=== PATIENT | female | born 1970 | race Caucasian/White ===

== ENCOUNTER 2017-01-31 16:46 | Emergency (ER) | payer OTHER ==
[~2017-01-31 16:46] MED LIST: ASPIRIN EC325 MG PO; FLEXERIL 10 MG10 MG PO; LIPITOR40 MG PO; LOPRESSOR 25 MG25 MG PO; NEURONTIN600 MG PO; NITRO-TIME2.5 MG PO; NITROSTAT0.4 MG SL; PROTONIX40 MG PO; PROZAC40 MG PO; REMERON15 MG PO; RISPERDAL1 MG PO; SEROQUEL100 MG PO; SEROQUEL50 MG PO; TEGRETOL200 MG PO; TOPAMAX25 MG PO; TOPROL XL25 MG PO; WELLBUTRIN XL150 MG PO
[2017-01-31 18:01] LABS: HEMOGLOBIN 12.4 gm/dl (12.3-15.3); RED BLOOD COUNT 3.93 M/UL (4.00-5.10); WHITE BLOOD COUNT 10.2 K/UL (4.5-11.0)
[2017-01-31 18:31] LABS: BUN/CREATININE RATIO 14 (0-10)
[2017-02-01 15:48] LABS: ACINETOBACTER BAUMANNII Not Detected (Negative); CANDIDA ALBICANS Not Detected (Negative); CANDIDA KRUSEI Not Detected (Negative); CANDIDA TROPICALIS Not Detected (Negative); ENTEROCOCCUS Not Detected (Negative); ESCHERICHIA COLI Not Detected (Negative); HAEMOPHILUS INFLUENZAE Not Detected (Negative); KLEBSIELLA OXYTOCA Not Detected (Negative); KLEBSIELLA PNEUMONIAE Not Detected (Negative); KPC-CARBAPENEM-RESISTANCE GENE Not Detected (Negative); PROTEUS Not Detected (Negative); PSEUDOMONAS AERUGINOSA Not Detected (Negative); SERRATIA MARCESANS Not Detected (Negative); STAPHYLOCOCCUS AUREUS Not Detected (Negative); STREP AGALACTIAE (GROUP B) Not Detected (Negative); STREP PYOGENES (GROUP A) Not Detected (Negative); STREPTOCOCCUS Not Detected (Negative); vanA/B (VANCOMYCIN RESIST GENE Not Detected (Negative)
[2017-02-01 18:19] LABS: STAPHYLOCOCCUS DETECTED (Negative)
[2017-02-01 18:20] LABS: mecA (METHICILLIN RESIST GENE DETECTED (Negative)
== END 2017-01-31 22:33 | disposition home or self-care (01) ==
LOC: ER1 16:46
PROVIDERS: Emergency Medicine; Specialist/Technologist Athletic Trainer
DX: I95.1 Orthostatic hypotension (principal); R07.89 Other chest pain
CPT/HCPCS: 36415; 71010; 80053; 81001; 82009; 82550; 82553; 83874; 83880; 84484; 84703; 85025; 85379; 87040; 87077; 87150; 87186; 93005; 96360; 99285

== ENCOUNTER 2017-02-04 13:44 | Emergency (ER) | payer OTHER ==
[2017-02-04 14:22] LABS: HEMOGLOBIN 12.8 gm/dl (12.3-15.3); RED BLOOD COUNT 3.98 M/UL (4.00-5.10); WHITE BLOOD COUNT 12.3 K/UL (4.5-11.0)
[2017-02-04 14:44] LABS: BUN/CREATININE RATIO 13 (0-10)
== END 2017-02-04 19:45 | disposition home or self-care (01) ==
LOC: ER1 13:44
PROVIDERS: Emergency Medicine
DX: R53.1 Weakness (principal); I10 Essential (primary) hypertension; Z79.82 Long term (current) use of aspirin; Z79.899 Other long term (current) drug therapy
CPT/HCPCS: 36415; 71010; 80053; 80307; 81001; 82550; 82553; 83874; 83880; 84484; 85025; 85379; 87086; 93005; 99285; J7030; J7050; Q9963

== ENCOUNTER 2017-02-28 10:25 | Observation (INO) | payer OTHER ==
[~2017-02-28] VITALS: Ht 162.6 cm; Wt 124.7 kg
[2017-02-28 12:36] LABS: HEMOGLOBIN 11.8 gm/dl (12.3-15.3); RED BLOOD COUNT 3.69 M/UL (4.00-5.10); WHITE BLOOD COUNT 15.7 K/UL (4.5-11.0)
[2017-02-28 12:58] LABS: BUN/CREATININE RATIO 14 (0-10)
[2017-02-28] MEDS ORDERED: IBUPROFEN600 MG PO (23:38)
[2017-02-28] MEDS ORDERED: FLEXERIL 10 MG10 MG PO (23:38)
[2017-02-28] MEDS ORDERED: MEDROL TAB 4 MG4 MG PO (23:39)
[2017-02-28] MEDS ORDERED: PROTONIX40 MG PO (23:39)
[2017-02-28] MEDS ORDERED: RA CALCIUM CIT PO (23:40)
[2017-02-28] MEDS ORDERED: RA SENNA PLUS1 EACH PO (23:41)
[2017-02-28] MEDS ORDERED: NEURONTIN 400400 MG PO (23:41)
[2017-02-28] MEDS ORDERED: LIPITOR40 MG PO (23:42)
[2017-02-28] MEDS ORDERED: TOPAMAX 100 MG100 MG PO (23:42)
[2017-02-28] MEDS ORDERED: VALIUM 5 MG TAB5 MG PO (23:42)
[2017-02-28] MEDS ORDERED: PROZAC40 MG PO (23:43)
[2017-02-28] MEDS ORDERED: DEPAKOTE500 MG PO (23:43)
[2017-02-28] MEDS ORDERED: MIRALAX17 GM PO (23:44)
[2017-02-28] MEDS ORDERED: METFORMIN HCL500 M2 PO (23:44)
[2017-02-28] MEDS ORDERED: ASPIRIN325 MG PO (23:45)
[2017-02-28] MEDS ORDERED: NITROSTAT 0.40.4 MG SL (23:45)
[2017-02-28] MEDS ORDERED: VENTOLIN/PROVE0.5 ML INH (23:47)
[2017-02-28] MEDS ORDERED: NITROGLYCERIN6.5 M1 PO (23:47)
[2017-02-28] MEDS ORDERED: WELLBUTRIN XL150 MG PO (23:48)
[2017-03-01 04:34] LABS: HEMOGLOBIN 11.2 gm/dl (12.3-15.3); RED BLOOD COUNT 3.56 M/UL (4.00-5.10)
[2017-03-01 04:35] LABS: WHITE BLOOD COUNT 11.1 K/UL (4.5-11.0)
[2017-03-01 05:00] LABS: BUN/CREATININE RATIO 13 (0-10)
== END 2017-03-01 18:05 | disposition home or self-care (01) ==
LOC: ER1 10:25 → ZEROF 16:05 → MED SURG 4 23:28
PROVIDERS: Physician Assistant; ADMIT Internal Medicine
DX: R07.9 Chest pain, unspecified (principal); M50.221 Other cervical disc displacement at C4-C5 level; M50.222 Other cervical disc displacement at C5-C6 level; M50.21 Other cervical disc displacement, high cervical region; D72.829 Elevated white blood cell count, unspecified; T38.0X5A Adverse effect of glucocorticoids and synthetic analogues, initial encounter; I10 Essential (primary) hypertension; F32.9 Major depressive disorder, single episode, unspecified; F41.9 Anxiety disorder, unspecified; G40.909 Epilepsy, unspecified, not intractable, without status epilepticus; K21.9 Gastro-esophageal reflux disease without esophagitis; E66.9 Obesity, unspecified; M25.511 Pain in right shoulder; F17.210 Nicotine dependence, cigarettes, uncomplicated; Z79.82 Long term (current) use of aspirin; Z79.899 Other long term (current) drug therapy; Z90.49 Acquired absence of other specified parts of digestive tract; Z82.49 Family history of ischemic heart disease and other diseases of the circulatory system
CPT/HCPCS: 36415; 70450; 71020; 72125; 73030; 80048; 80053; 80061; 81001; 82550; 82553; 82962; 83735; 83874; 84484; 85025; 87077; 87086; 87186; 93005; 96374; 96375; 99285; G0378; J2270; J2405; J7509

== ENCOUNTER → 2017-07-12 | Outpatient (CLI) | payer OTHER ==
[~2017-07-12] MED LIST changes: +ASPIRIN325 MG PO; +DEPAKOTE500 MG PO; +IBUPROFEN600 MG PO; +MEDROL TAB 4 MG4 MG PO; +METFORMIN HCL500 M2 PO; +MIRALAX17 GM PO; +NEURONTIN 400400 MG PO; +NITROGLYCERIN6.5 M1 PO; +NITROSTAT 0.40.4 MG SL; +RA CALCIUM CIT PO; +RA SENNA PLUS1 EACH PO; +TOPAMAX 100 MG100 MG PO; +VALIUM 5 MG TAB5 MG PO; +VENTOLIN/PROVE0.5 ML INH
== END ==
LOC: RAD 16:20
DX: K59.00 Constipation, unspecified (principal); M17.0 Bilateral primary osteoarthritis of knee; M76.52 Patellar tendinitis, left knee
CPT/HCPCS: 73564; 74020

== ENCOUNTER 2020-11-13 19:33 | Emergency (ER) | payer MEDICARE, OTHER ==
[~2020-11-13] VITALS: Ht 172.7 cm; Wt 129.3 kg
[~2020-11-13 19:33] MED LIST changes: +ALBUTEROL0.63 MG/3 INH; +ALBUTEROL2.5 MG/3 M INH; +ASPIRIN 325MG325 MG PO; +ASPIRIN81 MG PO; +ATORVASTATIN CA40 MG PO; +AUGMENTIN 875-1 EACH PO; +BACTRIM DS TAB1 EACH PO; +BACTROBAN NASAL1 G1; +BENTYL 10MG CAP10 MG PO; +CALCIUM 600 +1 EA11 PO; +CELEBREX 200MG200 MG PO; +CELECOXIB200 MG PO; +COL-RITE100 MG PO; +COLACE 100MG C100 MG PO; +DIAZEPAM5 MG PO; +DOXYCYCLINE HY100 M2 PO; +EMERGEN-C 500500 MG PO; +FISH OIL 1,0001 EACH PO; +GABAPENTIN300 MG PO; +GABAPENTIN600 MG PO; +GABAPENTIN800 MG PO; +HYDROXYZINE HCL25 MG PO; +IBU800 MG PO; -IBUPROFEN600 MG PO; +IBUPROFEN800 MG PO; +IMITREX50 MG PO; +INDERAL TAB 2020 MG PO; +INVANZ 1 GM VIAL1 GM IV; +KEFLEX CAP 500500 MG PO; +LEVAQUIN500 MG PO; +LINZESS145 MCG PO; +LORTAB 7.5-3251 EACH PO; +MAPAP325 MG PO; +MINIPRESS2 MG PO; +MULTIVITAMINS1 EAC1 PO; +NAPROXEN 250 M250 MG PO; +NEURONTIN800 MG PO; +NICOTINE PATCH1 EAC2 TOP; +NORCO 10-325 T1 EACH PO; +NORCO 5-325 TA1 EACH PO; +NORCO 7.5-3251 EACH PO; +OMNICEF 300 MG300 MG PO; +OXCARBAZEPINE150 MG PO; +PREDNISONE 20 M20 MG PO; +PROPRANOLOL HCL10 MG PO; +QNASL8.7 GM INH; +REGLAN5 MG PO; +REXULTI PO; +ROBAXIN-750750 MG PO; +SILVADENE CREAM20 GM TOP; +TEGRETOL 200 M200 MG PO; +TRAZODONE HCL100 MG PO; +ULTRAM50 MG PO; +VENTOLIN HFA 66.7 GM INH; +VIBRAMYCIN100 MG PO; +VITAMIN C500 M4 PO; +ZESTRIL/PRINIVI10 MG PO; +ZITHROMAX250 MG PO; +ZOFRAN4 MG PO; +rexulti PO
[2020-11-13 20:21] LABS: HEMOGLOBIN 11.9 gm/dl (12.3-15.3); RED BLOOD COUNT 3.73 M/UL (4.00-5.10); WHITE BLOOD COUNT 14.1 K/UL (4.5-11.0)
[2020-11-13 20:46] LABS: BUN/CREATININE RATIO 20 (0-10)
[2020-11-13] MEDS ORDERED: LOPRESSOR 25 MG25 MG PO (23:06)
[2020-11-13] MEDS ORDERED: ZESTRIL5 MG PO (23:09)
[2020-11-13] MEDS ORDERED: IBUPROFEN800 MG PO (23:09)
[2020-11-13] MEDS ORDERED: INDERAL TAB 2020 MG PO (23:10)
[2020-11-13] MEDS ORDERED: NASONEX17 GM (23:11)
[2020-11-13] MEDS ORDERED: LYRICA200 MG PO (23:12)
[2020-11-13] MEDS ORDERED: KLONOPIN0.5 MG PO (23:12)
[2020-11-13] MEDS ORDERED: CELEBREX 200MG200 MG PO (23:13)
[2020-11-13] MEDS ORDERED: TRILEPTAL150 MG PO (23:14)
[2020-11-13] MEDS ORDERED: LASIX TAB 20 MG20 MG PO (23:15)
[2020-11-13] MEDS ORDERED: DOK100 MG PO (23:17)
[2020-11-14 04:36] LABS: RED BLOOD COUNT 3.44 M/UL (4.00-5.10); WHITE BLOOD COUNT 11.2 K/UL (4.5-11.0)
[2020-11-14 04:49] LABS: BUN/CREATININE RATIO 32 (0-10)
[2021-05-14] MEDS ORDERED: MOVANTIK25 MG PO (13:23)
[2021-05-14] MEDS ORDERED: VITAMIN D21250 MCG PO (13:25)
[2021-05-21] MEDS ORDERED: PROZAC40 MG PO (07:03)
== END 2020-11-14 14:00 | disposition home or self-care (01) ==
LOC: ER1 19:33 → CDU 21:42 → ER1 21:42
PROVIDERS: Internal Medicine; Nurse Practitioner
DX: R07.1 Chest pain on breathing (principal); E87.6 Hypokalemia; D72.829 Elevated white blood cell count, unspecified; D64.9 Anemia, unspecified; R06.02 Shortness of breath; R42 Dizziness and giddiness; I25.2 Old myocardial infarction; I10 Essential (primary) hypertension; E78.5 Hyperlipidemia, unspecified; J44.9 Chronic obstructive pulmonary disease, unspecified; F41.9 Anxiety disorder, unspecified; G40.909 Epilepsy, unspecified, not intractable, without status epilepticus; F32.9 Major depressive disorder, single episode, unspecified; F17.210 Nicotine dependence, cigarettes, uncomplicated; Z87.01 Personal history of pneumonia (recurrent); Z79.82 Long term (current) use of aspirin; Z98.890 Other specified postprocedural states; Z99.81 Dependence on supplemental oxygen; Z79.899 Other long term (current) drug therapy; G89.29 Other chronic pain; Z79.891 Long term (current) use of opiate analgesic; Z86.16 Personal history of COVID-19; Z87.19 Personal history of other diseases of the digestive system; Z20.822 Contact with and (suspected) exposure to COVID-19
CPT/HCPCS: 71045; 80048; 80053; 82550; 82553; 83735; 83874; 84484; 85025; 90471; 93005; 99285; J2270; J2405; U0002

== ENCOUNTER 2020-12-04 15:19 | Emergency (ER) | payer MEDICARE, OTHER ==
[~2020-12-04 15:19] MED LIST changes: +DOK100 MG PO; +KLONOPIN0.5 MG PO; +LASIX TAB 20 MG20 MG PO; +LYRICA200 MG PO; +NASONEX17 GM; +TRILEPTAL150 MG PO; +ZESTRIL5 MG PO
[2020-12-04 16:44] LABS: RED BLOOD COUNT 3.83 M/UL (4.00-5.10); WHITE BLOOD COUNT 16.2 K/UL (4.5-11.0)
[2020-12-04 17:13] LABS: BUN/CREATININE RATIO 15 (0-10)
[2020-12-04] MEDS ORDERED: IBUPROFEN800 MG PO (17:41)
[2020-12-04] MEDS ORDERED: CYCLOBENZAPRINE10 MG PO (17:41)
[2021-05-14] MEDS ORDERED: MOVANTIK25 MG PO (13:23)
[2021-05-14] MEDS ORDERED: VITAMIN D21250 MCG PO (13:25)
[2021-05-21] MEDS ORDERED: PROZAC40 MG PO (07:03)
== END 2020-12-04 18:10 | disposition home or self-care (01) ==
LOC: ER1 15:19
PROVIDERS: Preventive Medicine Occupational Medicine
DX: R07.89 Other chest pain (principal); I10 Essential (primary) hypertension; E11.9 Type 2 diabetes mellitus without complications; F17.200 Nicotine dependence, unspecified, uncomplicated
CPT/HCPCS: 36415; 71260; 80053; 85025; 85652; 86140; 96374; 99285; J1885; Q9963

== ENCOUNTER → 2021-01-26 | Outpatient (CLI) | payer MEDICARE, OTHER ==
[~2021-01-26] MED LIST changes: +CARAFATE 1 GM TA1 GM PO; +COLACE100 MG PO; +CYCLOBENZAPRINE10 MG PO; +DICLOFENAC SOD100 GM EXT; +DIFLUCAN200 MG PO; +HYDROCODON-ACE1 EAC2 PO; +MOVANTIK25 MG PO; +NATURAL FIBER283 G1 PO; +NITROGLYCERIN0.4 MG PO; +NURTEC ODT75 MG PO; +PERCOCET 10-321 EACH PO; +POLYETHYLENE GL17 GM PO; +POTASSIUM CHLO10 MEQ PO; +PROAIR DIGIHAL90 MCG PO; +PROGESTERONE200 MG PO; +ROPINIROLE HCL1 MG PO; +VITAMIN D21250 MCG PO; +ZYRTEC10 MG PO
== END ==
LOC: KOH-I 16:31
DX: M25.571 Pain in right ankle and joints of right foot (principal)
CPT/HCPCS: 73610; 73630

== ENCOUNTER → 2021-02-09 | Outpatient (CLI) | payer MEDICARE, OTHER | LOC: KOH-I 01-30 13:00 | DX: J32.9 Chronic sinusitis, unspecified (principal); R51.9 Headache, unspecified | CPT/HCPCS: 70486 ==

== ENCOUNTER → 2021-04-21 | Outpatient (CLI) | payer MEDICARE, OTHER | LOC: KOH-I 14:39 | DX: S82.831A Other fracture of upper and lower end of right fibula, initial encounter for closed fracture (principal); X58.XXXA Exposure to other specified factors, initial encounter | CPT/HCPCS: 73610 ==

== ENCOUNTER → 2021-05-14 | Outpatient (CLI) | payer MEDICARE, OTHER ==
[~2021-05-14] MED LIST changes: +PERCOCET 5-3251 EACH PO; +PERCOCET 5/325 T1 EA PO
[2021-05-14 12:18] LABS: HEMOGLOBIN 11.6 gm/dl (12.3-15.3); RED BLOOD COUNT 3.7 M/UL (4.00-5.10); WHITE BLOOD COUNT 10.7 K/UL (4.5-11.0)
== END ==
LOC: OPSV2 10:30
PROVIDERS: Anesthesiology; Obstetrics & Gynecology
DX: Z01.812 Encounter for preprocedural laboratory examination (principal); R10.2 Pelvic and perineal pain
CPT/HCPCS: 80048; 81001; 85025

== ENCOUNTER 2021-05-21 11:37 | Inpatient (IN) | payer MEDICARE, OTHER ==
[~2021-05-21] VITALS: Ht 162.6 cm; Wt 124.7 kg
[~2021-05-21 11:37] MED LIST changes: -CARAFATE 1 GM TA1 GM PO; -COLACE100 MG PO; -DICLOFENAC SOD100 GM EXT; -DIFLUCAN200 MG PO; -HYDROCODON-ACE1 EAC2 PO; -LYRICA200 MG PO; -NATURAL FIBER283 G1 PO; -NITROGLYCERIN0.4 MG PO; -NURTEC ODT75 MG PO; -PERCOCET 10-321 EACH PO; -PERCOCET 5-3251 EACH PO; -PERCOCET 5/325 T1 EA PO; -POLYETHYLENE GL17 GM PO; -POTASSIUM CHLO10 MEQ PO; -PROAIR DIGIHAL90 MCG PO; -PROGESTERONE200 MG PO; -ROPINIROLE HCL1 MG PO; -ZYRTEC10 MG PO
[2021-05-21] MEDS ORDERED: CARAFATE 1 GM TA1 GM PO (13:22)
[2021-05-21] MEDS ORDERED: GABAPENTIN300 MG PO (13:22)
[2021-05-21] MEDS ORDERED: SEROQUEL100 MG PO (13:24)
[2021-05-21] MEDS ORDERED: PROGESTERONE200 MG PO (13:24)
[2021-05-21] MEDS ORDERED: ZYRTEC10 MG PO (13:25)
[2021-05-21] MEDS ORDERED: ROPINIROLE HCL1 MG PO (16:14)
[2021-05-21] MEDS ORDERED: POLYETHYLENE GL17 GM PO (17:26)
[2021-05-21] MEDS ORDERED: PROAIR DIGIHAL90 MCG PO (17:30)
[2021-05-21] MEDS ORDERED: IBU800 MG PO (17:31)
[2021-05-21] MEDS ORDERED: DICLOFENAC SOD100 GM EXT (17:35)
[2021-05-21] MEDS ORDERED: NITROGLYCERIN0.4 MG PO (17:43)
[2021-05-21] MEDS ORDERED: ASPIRIN81 MG PO (17:45)
[2021-05-21] MEDS ORDERED: ATORVASTATIN CA40 MG PO (17:46)
[2021-05-21] MEDS ORDERED: LINZESS145 MCG PO (17:47)
[2021-05-21] MEDS ORDERED: POTASSIUM CHLO10 MEQ PO (17:49)
[2021-05-21] MEDS ORDERED: NATURAL FIBER283 G1 PO (17:52)
[2021-05-21 18:13] LABS: HEMOGLOBIN 12.1 gm/dl (12.3-15.3)
[2021-05-21] MEDS ORDERED: HYDROCODON-ACE1 EAC2 PO (21:42)
[2021-05-21] MEDS ORDERED: NURTEC ODT75 MG PO (23:13)
[2021-05-22] MEDS ORDERED: COLACE100 MG PO (10:57)
[2021-05-22] MEDS ORDERED: DIFLUCAN200 MG PO (10:57)
[2021-05-22] MEDS ORDERED: IBUPROFEN800 MG PO (10:57)
[2021-05-22] MEDS ORDERED: PERCOCET 10-321 EACH PO (10:57)
== END 2021-05-22 12:25 | disposition home or self-care (01) | DRG 742 ==
LOC: OR 11:37 → MED SURG 4 11:38 → OR 16:13 → MED SURG 4 05-22 12:25
PROVIDERS: ADMIT Obstetrics & Gynecology
PROC: 0UT20ZZ Resection of Bilateral Ovaries, Open Approach (ICD-10-PCS; 2021-05-21)
PROC: 0UT70ZZ Resection of Bilateral Fallopian Tubes, Open Approach (ICD-10-PCS; 2021-05-21)
PROC: 0UT90ZZ Resection of Uterus, Open Approach (ICD-10-PCS; principal; 2021-05-21 07:30)
DX: D25.9 Leiomyoma of uterus, unspecified (principal); Z68.42 Body mass index [BMI] 45.0-49.9, adult; N83.292 Other ovarian cyst, left side; F17.210 Nicotine dependence, cigarettes, uncomplicated; I48.91 Unspecified atrial fibrillation; K44.9 Diaphragmatic hernia without obstruction or gangrene; E66.9 Obesity, unspecified; G40.909 Epilepsy, unspecified, not intractable, without status epilepticus; K58.9 Irritable bowel syndrome, unspecified; K21.9 Gastro-esophageal reflux disease without esophagitis; Z87.11 Personal history of peptic ulcer disease; Z79.01 Long term (current) use of anticoagulants; I25.2 Old myocardial infarction; Z86.73 Personal history of transient ischemic attack (TIA), and cerebral infarction without residual deficits; Z80.8 Family history of malignant neoplasm of other organs or systems; Z80.1 Family history of malignant neoplasm of trachea, bronchus and lung; Z83.3 Family history of diabetes mellitus; Z82.49 Family history of ischemic heart disease and other diseases of the circulatory system; Z80.42 Family history of malignant neoplasm of prostate; Z90.49 Acquired absence of other specified parts of digestive tract
CPT/HCPCS: 85014; 85018; 86850; 86900; 86901; J0690; J1100; J1170; J1885; J2001; J2250; J2270; J2405; J2704; J3010; J7120; U0002

== ENCOUNTER 2021-05-29 10:45 | Emergency (ER) | payer MEDICARE, OTHER ==
[~2021-05-29 10:45] MED LIST changes: +CARAFATE 1 GM TA1 GM PO; +COLACE100 MG PO; +DICLOFENAC SOD100 GM EXT; +DIFLUCAN200 MG PO; +HYDROCODON-ACE1 EAC2 PO; +NATURAL FIBER283 G1 PO; +NITROGLYCERIN0.4 MG PO; +NURTEC ODT75 MG PO; +PERCOCET 10-321 EACH PO; +POLYETHYLENE GL17 GM PO; +POTASSIUM CHLO10 MEQ PO; +PROAIR DIGIHAL90 MCG PO; +PROGESTERONE200 MG PO; +ROPINIROLE HCL1 MG PO; +ZYRTEC10 MG PO
[2021-05-29 11:50] LABS: HEMOGLOBIN 11.5 gm/dl (12.3-15.3); RED BLOOD COUNT 3.65 M/UL (4.00-5.10); WHITE BLOOD COUNT 10.7 K/UL (4.5-11.0)
[2021-05-29 14:37] LABS: BUN/CREATININE RATIO 15 (0-10)
[2021-05-30] MEDS ORDERED: PERCOCET 5-3251 EACH PO (21:48)
[2021-05-30] MEDS ORDERED: AUGMENTIN 875-1 EACH PO (21:54)
== END 2021-05-29 15:30 | disposition home or self-care (01) ==
LOC: ER1 10:45
PROVIDERS: Emergency Medicine
DX: R10.9 Unspecified abdominal pain (principal); E87.6 Hypokalemia; Z90.710 Acquired absence of both cervix and uterus; J44.9 Chronic obstructive pulmonary disease, unspecified; Z86.73 Personal history of transient ischemic attack (TIA), and cerebral infarction without residual deficits; I25.2 Old myocardial infarction; Z90.49 Acquired absence of other specified parts of digestive tract; F17.200 Nicotine dependence, unspecified, uncomplicated
CPT/HCPCS: 80053; 81001; 83690; 85025; 87086; 96374; 96375; 99285; J2270; J2405; J7030; Q9967

== ENCOUNTER 2021-05-30 16:43 | Emergency (ER) | payer MEDICARE, OTHER ==
[2021-05-30 18:44] LABS: HEMOGLOBIN 10.8 gm/dl (12.3-15.3); RED BLOOD COUNT 3.4 M/UL (4.00-5.10)
[2021-05-30 18:46] LABS: WHITE BLOOD COUNT 13.4 K/UL (4.5-11.0)
[2021-05-30] MEDS ORDERED: PERCOCET 5-3251 EACH PO (21:48)
[2021-05-30] MEDS ORDERED: AUGMENTIN 875-1 EACH PO (21:54)
== END 2021-05-30 22:10 | disposition home or self-care (01) ==
LOC: ER1 16:43
PROVIDERS: Physician Assistant Medical
DX: E89.822 Postprocedural seroma of an endocrine system organ or structure following an endocrine system procedure (principal); E87.6 Hypokalemia; Z76.0 Encounter for issue of repeat prescription
CPT/HCPCS: 80053; 81001; 83605; 85025; 85652; 86140; 99284

== ENCOUNTER 2021-06-09 11:55 | Observation (INO) | payer MEDICARE, OTHER ==
[~2021-06-09] VITALS: Ht 162.6 cm; Wt 120.2 kg
[~2021-06-09 11:55] MED LIST changes: +PERCOCET 5-3251 EACH PO
--- NOTE | 2021-06-09 13:25 | NUR ---
1207-PT ARRIVED TO OB UNIT, 114/82, 98.2, RR 20, 100%RA, HR 57, PT STATES SHE HAS AN OPEN WOUND THAT IS BEING PACKED, CONTACTED OUR SALES MANAGER [place] AMANDA, SHE LOOKED AT WOUND ON PT AND ALERTED HOUSE SUP THAT THIS PT BE TXD TO A MED/SURG FLOOR, REPORT IMMEDIATELY TO MANUEL NORTON THE RESOURCE RN , AND PT TXD VIA BED TO ROOM 4105. 20 RH IV STARTED, X ONE STICK.
[2021-06-09 13:43] LABS: HEMOGLOBIN 11.2 gm/dl (12.3-15.3); RED BLOOD COUNT 3.55 M/UL (4.00-5.10); WHITE BLOOD COUNT 9.3 K/UL (4.5-11.0)
[2021-06-09 14:08] LABS: BUN/CREATININE RATIO 13 (0-10)
[2021-06-09] MEDS ORDERED: LYRICA200 MG PO (23:12)
[2021-06-10 05:17] LABS: RED BLOOD COUNT 3.47 M/UL (4.00-5.10); WHITE BLOOD COUNT 10.2 K/UL (4.5-11.0)
[2021-06-10 05:32] LABS: BUN/CREATININE RATIO 14 (0-10)
[2021-06-10] MEDS ORDERED: PERCOCET 5/325 T1 EA PO (15:16)
[2021-06-10] MEDS ORDERED: COLACE100 MG PO (15:16)
[2021-06-10] MEDS ORDERED: AUGMENTIN 875-1 EACH PO (15:16)
[2021-06-10] MEDS ORDERED: BACTRIM DS TAB1 EACH PO (15:16)
[2021-06-10] MEDS ORDERED: IBUPROFEN800 MG PO (15:16)
--- NOTE | 2021-06-10 18:45 | NUR ---
ATTEMPTED TO CONTACT HOME HEALTH. VOICEMAIL LEFT WITH SUNNY TO CALL RN BACK, CALL BACK NUMBER LEFT.
== END 2021-06-10 18:19 | disposition home or self-care (01) ==
LOC: GENOP 11:55 → MED SURG 4 12:47 → OB 12:47 → MED SURG 4 13:00
PROVIDERS: Physician Assistant; ADMIT Obstetrics & Gynecology
DX: N99.840 Postprocedural hematoma of a genitourinary system organ or structure following a genitourinary system procedure (principal); D72.820 Lymphocytosis (symptomatic); D64.9 Anemia, unspecified; D47.3 Essential (hemorrhagic) thrombocythemia; E87.6 Hypokalemia; E78.5 Hyperlipidemia, unspecified; J44.9 Chronic obstructive pulmonary disease, unspecified; I25.10 Atherosclerotic heart disease of native coronary artery without angina pectoris; I48.91 Unspecified atrial fibrillation; K21.9 Gastro-esophageal reflux disease without esophagitis; G40.909 Epilepsy, unspecified, not intractable, without status epilepticus; E66.01 Morbid (severe) obesity due to excess calories; F17.200 Nicotine dependence, unspecified, uncomplicated; Z86.73 Personal history of transient ischemic attack (TIA), and cerebral infarction without residual deficits; Z90.722 Acquired absence of ovaries, bilateral
CPT/HCPCS: 36415; 80048; 80053; 83036; 85025; G0378; J7030

== ENCOUNTER → 2021-10-05 | Outpatient (CLI) | payer MEDICARE, OTHER ==
[~2021-10-05] MED LIST changes: +LYRICA200 MG PO; +PERCOCET 5/325 T1 EA PO
== END ==
LOC: RAD 14:00
DX: R05.9 Cough, unspecified (principal)
CPT/HCPCS: 71046

== ENCOUNTER 2021-10-11 07:14 | Emergency (ER) | payer MEDICARE, OTHER ==
[2021-10-11 07:51] LABS: HEMOGLOBIN 11.1 gm/dl (12.3-15.3); RED BLOOD COUNT 3.59 M/UL (4.00-5.10); WHITE BLOOD COUNT 13.4 K/UL (4.5-11.0)
[2021-10-11 08:09] LABS: BUN/CREATININE RATIO 12 (0-10)
[2021-10-11] MEDS ORDERED: AUGMENTIN 875-1 EACH PO (16:12)
[2021-10-11] MEDS ORDERED: PERCOCET 5/325 T1 EA PO (16:12)
[2021-10-11] MEDS ORDERED: FLAGYL 250 MG250 MG GT (16:12)
== END 2021-10-11 16:38 | disposition home or self-care (01) ==
LOC: ER1 07:14
PROVIDERS: Family Medicine
DX: K52.9 Noninfective gastroenteritis and colitis, unspecified (principal); J44.9 Chronic obstructive pulmonary disease, unspecified; F17.210 Nicotine dependence, cigarettes, uncomplicated
CPT/HCPCS: 71045; 80053; 82150; 82550; 82553; 83690; 83874; 84484; 85025; 85379; 93005; 96374; 96375; 96376; 99284; J2270; J2405; Q9967

== ENCOUNTER → 2022-02-26 | Outpatient (CLI) | payer MEDICARE, OTHER ==
[~2022-02-26] MED LIST changes: +FLAGYL 250 MG250 MG GT
== END ==
LOC: KOH-I 10:07
DX: M25.552 Pain in left hip (principal); M25.551 Pain in right hip; M16.0 Bilateral primary osteoarthritis of hip
CPT/HCPCS: 73522

== ENCOUNTER → 2022-05-21 | Outpatient (CLI) | payer MEDICARE, OTHER ==
[2022-05-21 14:13] LABS: HEMOGLOBIN 12.3 gm/dl (12.3-15.3); RED BLOOD COUNT 3.95 M/UL (4.00-5.10); WHITE BLOOD COUNT 15.6 K/UL (4.5-11.0)
[2022-05-21 14:19] LABS: BUN/CREATININE RATIO 12 (0-10)
== END ==
LOC: LAB 12:59
PROVIDERS: Surgery
DX: K92.1 Melena (principal)
CPT/HCPCS: 36415; 71046; 80048; 85025; 93005

== ENCOUNTER 2022-06-07 15:45 | Inpatient (IN) | payer MEDICARE, OTHER ==
[~2022-06-07] VITALS: Ht 162.6 cm; Wt 108.9 kg
[~2022-06-07 15:45] MED LIST changes: +ASPIRIN EC81 MG PO; -LYRICA200 MG PO; +LYRICA300 MG PO; -ROPINIROLE HCL1 MG PO; +ROPINIROLE HCL4 M1 PO
[2022-06-07 16:37] LABS: HEMOGLOBIN 11.7 gm/dl (12.3-15.3); RED BLOOD COUNT 3.76 M/UL (4.00-5.10); WHITE BLOOD COUNT 11.2 K/UL (4.5-11.0)
[2022-06-07 16:52] LABS: BUN/CREATININE RATIO 18 (0-10)
[2022-06-08 05:46] LABS: BUN/CREATININE RATIO 15 (0-10)
[2022-06-08 06:20] LABS: HEMOGLOBIN 11.2 gm/dl (12.3-15.3); RED BLOOD COUNT 3.57 M/UL (4.00-5.10)
[2022-06-08 06:21] LABS: WHITE BLOOD COUNT 17.2 K/UL (4.5-11.0)
[2022-06-08] MEDS ORDERED: CIPRO500 MG PO (12:27)
[2022-06-08] MEDS ORDERED: FLAGYL 250 MG250 MG PO (12:28)
[2022-06-08] MEDS ORDERED: KENALOG OINT 0.15 GM TOP (12:29)
[2022-06-08] MEDS ORDERED: ONDANSETRON HCL4 MG PO (12:29)
[2022-06-08] MEDS ORDERED: NICODERM CQ1 EAC2 TD (12:30)
[2022-06-08] MEDS ORDERED: ESTRADIOL42.5 GM VG (12:30)
[2022-06-08] MEDS ORDERED: ROBAXIN 750 MG750 MG PO (12:31)
[2022-06-08] MEDS ORDERED: HYDROCODON-ACE1 EAC6 PO (12:31)
[2022-06-08] MEDS ORDERED: LACTULOSE10 GM/15 M PO (12:32)
[2022-06-08] MEDS ORDERED: TRAZODONE HCL100 MG PO (12:33)
[2022-06-08] MEDS ORDERED: FUROSEMIDE20 MG PO (12:33)
[2022-06-08] MEDS ORDERED: HYDROXYCHLOROQ200 MG PO (12:35)
[2022-06-09 06:25] LABS: HEMOGLOBIN 11.3 gm/dl (12.3-15.3); RED BLOOD COUNT 3.61 M/UL (4.00-5.10)
[2022-06-09 06:31] LABS: WHITE BLOOD COUNT 11.1 K/UL (4.5-11.0)
[2022-06-09 06:53] LABS: BUN/CREATININE RATIO 11 (0-10)
[2022-06-09] MEDS ORDERED: TOPIRAMATE100 MG PO (12:12)
[2022-06-09 15:37] LABS: ADENOVIRUS F 40/41 Not Detected (Negative); ASTROVIRUS Not Detected (Negative); CAMPYLOBACTER Not Detected (Negative); CRYPTOSPORIDIUM Not Detected (Negative); E.COLI 0157 Not Detected (Negative); ENTAMOEBA HISTOLYTICA Not Detected (Negative); ENTEROAGGREGATIVE E.COLI (EAEC Not Detected (Negative); ENTEROPATHOGENIC E.COLI (EPEC) Not Detected (Negative); ENTEROTOXIGENIC E.COLI (ETEC) Not Detected (Negative); GIARDIA LAMBLIA Not Detected (Negative); NOROVIRUS GI/GII Not Detected (Negative); PLESIOMONAS SHIGELLOIDES Not Detected (Negative); ROTOVIRUS A Not Detected (Negative); SALMONELLA Not Detected (Negative); SAPOVIRUS Not Detected (Negative); SHIG/ENTEROINVAS.ECOLI (EIEC) Not Detected (Negative); SHIGA-LIK TOX.PRO.E.COLI (STEC Not Detected (Negative); VIBRIO Not Detected (Negative); VIBRIO CHOLERAE Not Detected (Negative); YERSINIA ENTEROCOLITICA Not Detected (Negative)
[2022-06-10 06:28] LABS: HEMOGLOBIN 11.6 gm/dl (12.3-15.3); RED BLOOD COUNT 3.71 M/UL (4.00-5.10); WHITE BLOOD COUNT 12.8 K/UL (4.5-11.0)
[2022-06-10 06:50] LABS: BUN/CREATININE RATIO 8 (0-10)
== END 2022-06-10 14:45 | disposition home or self-care (01) | DRG 389 ==
LOC: ER1 15:45 → MED SURG 4 19:22 → CDU 19:22 → MED SURG 4 20:51
PROVIDERS: Emergency Medicine; Internal Medicine; ADMIT Internal Medicine
PROC: B24BZZZ Ultrasonography of Heart with Aorta (ICD-10-PCS; principal; 2022-06-08)
DX: K56.7 Ileus, unspecified (principal); F11.20 Opioid dependence, uncomplicated; Z20.822 Contact with and (suspected) exposure to COVID-19; I16.9 Hypertensive crisis, unspecified; K52.9 Noninfective gastroenteritis and colitis, unspecified; R07.89 Other chest pain; I10 Essential (primary) hypertension; G89.29 Other chronic pain; I49.5 Sick sinus syndrome; I25.10 Atherosclerotic heart disease of native coronary artery without angina pectoris; E66.9 Obesity, unspecified; R74.01 Elevation of levels of liver transaminase levels; M32.9 Systemic lupus erythematosus, unspecified; F17.210 Nicotine dependence, cigarettes, uncomplicated; F32.A Depression, unspecified; M54.9 Dorsalgia, unspecified; G62.9 Polyneuropathy, unspecified; G47.00 Insomnia, unspecified; G35 Multiple sclerosis; I08.1 Rheumatic disorders of both mitral and tricuspid valves; I27.20 Pulmonary hypertension, unspecified; Z79.01 Long term (current) use of anticoagulants; Z79.82 Long term (current) use of aspirin; Z86.73 Personal history of transient ischemic attack (TIA), and cerebral infarction without residual deficits; Z91.040 Latex allergy status; Z91.048 Other nonmedicinal substance allergy status; I25.2 Old myocardial infarction; Z90.710 Acquired absence of both cervix and uterus
CPT/HCPCS: ECHO; 36415; 71045; 80053; 81001; 82550; 82553; 82962; 83036; 83540; 83550; 83605; 83735; 83880; 84100; 84484; 85025; 85027; 85379; 87040; 87086; 87507; 93005; 93270; 93306; 94640; 94760; 96372; 96374; 96375; 99285; C9113; G0378; J1650; J2270; J2405; J2543; Q9967

== ENCOUNTER 2022-07-13 16:05 | Emergency (ER) | payer MEDICARE, OTHER ==
[~2022-07-13 16:05] MED LIST changes: +CIPRO500 MG PO; +ESTRADIOL42.5 GM VG; +FLAGYL 250 MG250 MG PO; +FUROSEMIDE20 MG PO; +HYDROCODON-ACE1 EAC6 PO; +HYDROXYCHLOROQ200 MG PO; +KENALOG OINT 0.15 GM TOP; +LACTULOSE10 GM/15 M PO; +NICODERM CQ1 EAC2 TD; +ONDANSETRON HCL4 MG PO; +ROBAXIN 750 MG750 MG PO; +TOPIRAMATE100 MG PO
[2022-07-13 16:24] LABS: HEMOGLOBIN 12.4 gm/dl (12.3-15.3); RED BLOOD COUNT 3.88 M/UL (4.00-5.10)
[2022-07-13 16:47] LABS: BUN/CREATININE RATIO 9 (0-10)
[2022-07-13] MEDS ORDERED: LACTULOSE20 GM/30 M PO (21:32)
== END 2022-07-13 22:40 | disposition home or self-care (01) ==
LOC: ER1 16:05
PROVIDERS: Family Medicine
DX: K59.00 Constipation, unspecified (principal)
CPT/HCPCS: 74018; 80053; 81001; 83690; 85025; 99283; J2212

== ENCOUNTER → 2022-07-20 | Outpatient (CLI) | payer MEDICARE, OTHER ==
[~2022-07-20] MED LIST changes: +LACTULOSE20 GM/30 M PO
== END ==
LOC: KOH-I 16:05
DX: M25.511 Pain in right shoulder (principal); M50.30 Other cervical disc degeneration, unspecified cervical region; M47.812 Spondylosis without myelopathy or radiculopathy, cervical region
CPT/HCPCS: 72040; 73030

== ENCOUNTER → 2022-07-29 | Outpatient (CLI) | payer MEDICARE, OTHER | LOC: RAD 16:28 | DX: R05.9 Cough, unspecified (principal) | CPT/HCPCS: 71046 ==